=== PATIENT | male | born 1975 | race Caucasian/White ===

== ENCOUNTER 2018-02-21 07:56 | Emergency (ER) | payer BC ==
[~2018-02-21] VITALS: Ht 190.5 cm; Wt 103.6 kg
[2018-02-21 08:03] VITALS: Ht 190.5 cm; Wt 103.6 kg
[2018-02-21 09:03] LABS: microscopic required? NO
[2018-02-21 09:24] LABS: CALCIUM 8.8 mg/dL (8.5-10.1); CARBON DIOXIDE 29.2 mmol/L (21-32); CHLORIDE SERUM 103 mmol/L (98-107); CREATININE SERUM 1.2 mg/dL (0.7-1.3); GFR1 > 60 mL/min; GLUCOSE SERUM 102 mg/dL (74-106); POTASSIUM SERUM 4.1 mmol/L (3.5-5.1); SODIUM SERUM 140 mmol/L (136-145)
[2018-02-21 09:25] LABS: BASOPHIL % 0.3 % (0-2); PLATELET COUNT 270 x10^3mcL (130-400); RED CELL DISTRIBUTION WIDTH 13.2 % (11.5-14.5)
[2018-02-21 09:36] LABS: ALBUMIN 4.1 g/dL (3.4-5.0); ALKALINE PHOSPHATASE 49 U/L (46-116); ALT/SGPT 63 U/L (16-63); AST/SGOT 30 U/L (15-37); BILIRUBIN TOTAL 0.73 mg/dL (0.20-1.00); CHOLESTEROL 223 mg/dL (<200); HDL CHOLESTEROL 39 mg/dL (40-60); T4(THYROXINE) 7.2 ug/dL (4.7-13.3); TOTAL PROTEIN, SERUM 7.3 g/dL (6.4-8.2)
[2018-02-21 09:53] LABS: UA SPECIFIC GRAVITY 1.015 (1.005-1.035); urine erythrocyte NEGATIVE (NEGATIVE)
[2018-02-21 10:25] LABS: AMPHETAMINE QUAL UR NONE DETECTED (See below)
[2018-02-21 11:17] VITALS: BP 123/85
== END 2018-02-21 11:17 | disposition home or self-care (01) ==
LOC: ED 07:56
PROVIDERS: Emergency Medicine
DX: F41.9 Anxiety disorder, unspecified (principal); G47.00 Insomnia, unspecified
CPT/HCPCS: 36415; 83880; G0480